=== PATIENT | male | born 1940 | race Caucasian/White ===

== ENCOUNTER → 2021-04-19 | Outpatient (CLI) | payer OTHER ==
[~2021-04-19] VITALS: Ht 175.3 cm; Wt 73.4 kg
[~2021-04-19] MED LIST: 00186-0370-20 IH; ACIDOPHILIS; ALBUTEROL0.83 MG/ML IH; ANORO IH; ASPIRIN 81M81 MG/TA2 PO; CARDURA 8MG TAB8 MG PO; CARDURA XL8 MG PO; COMBIRESP IH; FLAGYL500 MG PO; FLONASEALLERGY NS; MUCUS RELIEF400 M1 PO; PERCOCET 325 MG1 TA2 PO; PRIL40 PO; PRINZIDE 12.5 M1 TA1 PO; PROAIR HFA0.09 MG/AC IH; PROSCAR 5MG5 MG PO; ROBITUSSIN DM 105 ML PO; ULTRAM 50MG TAB50 MG PO; VITAMIN D31000 IU PO; ZESTRIL 10MG10 MG PO; ZOCOR 40MG40 MG PO
[2021-04-19 10:20] VITALS: BP 156/62; PULSE 93; TEMP 98.8
--- NOTE | 2021-04-19 10:50 | NUR ---
Dr Penn canceled case due to high risk of hitting the bowels. Pt informed by Dr Penn. Pt back to holding area. Int removed by Rina ROUSE, 2x2 and alfreda to site. Pts back to room and explained reason for being unable to complete biopsy. Pt out to car per wheelchair after getting dressed. Pt up with standby assistance into vehicle.
== END ==
LOC: COL.RAD 09:52
DX: R19.00 Intra-abdominal and pelvic swelling, mass and lump, unspecified site (principal)

== ENCOUNTER 2021-05-19 11:37 | Emergency (ER) | payer OTHER ==
[~2021-05-19] VITALS: Ht 175.3 cm; Wt 77.3 kg
[2021-05-19 12:10] LABS: BASO % 0.2 % (0.0-2.0); EOS # 0.1 K/mm3 (0.0-0.7); EOS % 0.4 % (0.0-4.0); GRAN # 10.2 K/mm3 (1.4-6.5); GRAN % 83.5 % (42.2-75.2); HEMATOCRIT 33.2 % (42.0-52.0); HEMOGLOBIN 10.5 g/dl (13.5-18.0); LYMPH # 0.7 K/mm3 (1.2-3.4); LYMPH % 6.1 % (20.0-51.0); MEAN CELL VOLUME 83 fl (80.0-100.0); MEAN CORPUSCULAR HEMOGLOBIN 26 pg (27-31); MEAN CORPUSCULAR HGB CONC 32 g/dl (33.0-37.0); MEAN PLATELET VOLUME 11.1 fl (7.4-10.4); MONO # 1.2 K/mm3 (0.1-0.6); MONO % 9.6 % (1.7-9.3); PLATELET COUNT 330 K/mm3 (130-400); REDCELL DISTRIBUTION WIDTH-CV 14.7 % (11.5-14.5)
[2021-05-19 12:27] LABS: ALBUMIN 2.8 gm/dL (3.4-4.8); BILIRUBIN,TOTAL 0.6 mg/dL (0.2-1.2); C-REACTIVE PROTEIN 16.88 mg/dL (0.00-0.50); CALCIUM 8.2 mg/dL (8.4-10.2); CREATININE, serum 1.44 mg/dL (0.72-1.25); POTASSIUM 3.4 mmol/L (3.5-4.5); TOTAL PROTEIN 6.5 gm/dL (6.2-8.1)
[2021-05-19 13:32] LABS: COLLECTION METHOD CLEAN CATCH
[2021-05-19 13:45] LABS: MUCOUS Present (NOT PRESENT); PH 5 (5-8); SQUAMOUS EPITHELIAL 0-2 /hpf (0-10); URINE APPEARANCE Clear (CLEAR/HAZY); URINE BACTERIA None Seen /hpf (NONE SEEN); URINE BILIRUBIN Negative (NEGATIVE); URINE BLOOD 1+ (NEGATIVE); URINE COLOR Yellow (YELLOW); URINE GLUCOSE Negative (NEGATIVE); URINE KETONE Negative (NEGATIVE); URINE LEUKOCYTE ESTERASE Negative (NEGATIVE); URINE NITRATE Negative (NEGATIVE); URINE PROTEIN(semi-quant) 2+ (NEGATIVE)
[2021-05-19] MEDS ORDERED: CEFTIN500 MG PO ×3 (15:30→15:45)
[2021-05-19] MEDS ORDERED: NORCO 325 MG-51 TAB PO ×2 (15:31→15:45)
[2021-05-19 15:58] VITALS: BP 151/77; PULSE 96
== END 2021-05-19 16:01 | disposition home or self-care (01) ==
LOC: COL.ER 11:37
PROVIDERS: Family Medicine
DX: M54.2 Cervicalgia (principal); J44.9 Chronic obstructive pulmonary disease, unspecified; D72.829 Elevated white blood cell count, unspecified; R79.82 Elevated C-reactive protein (CRP); I12.9 Hypertensive chronic kidney disease with stage 1 through stage 4 chronic kidney disease, or unspecified chronic kidney disease; N18.30 Chronic kidney disease, stage 3 unspecified; E78.5 Hyperlipidemia, unspecified; Z79.899 Other long term (current) drug therapy